=== PATIENT | male | born 1955 | race Caucasian/White ===

== ENCOUNTER 2016-12-05 07:49 | Day surgery (SDC) | payer BC ==
[~2016-12-05 07:49] MED LIST: Lactated Ringers 1,000 ML IV SCH
[2016-12-05] MEDS ORDERED: fentaNYL 100 MCG/2 ML SDV ONE (08:58)
[2016-12-05] MEDS ORDERED: Propofol 200 MG/20 ML SDV ONE ×3 (08:58→10:02)
[2016-12-05 16:04] VITALS: BP 131/77
--- NOTE | 2016-12-05 16:17 | OR ---
DATE OF SURGERY: 12/05/2016. REFERRING PROVIDER: Baldomero Parker MD. PREOPERATIVE DIAGNOSES: Positive family history of colon cancer in father who was diagnosed at age 56. The patient has had 2 previous colonoscopies, which were normal per patient report. POSTOPERATIVE DIAGNOSES: Normal colonoscopy. PROCEDURE: Colonoscopy. SURGEON: Vinicio Aragon M.D. ANESTHESIA: Monitored anesthesia care. BOWEL PREP: Good. Eulalio is a 61-year-old male who was brought to the endoscopy suite after discussing risks and benefits of the procedure. Informed consent was obtained for conscious sedation and colonoscopy with or without biopsy and/or polypectomy. We also discussed possibility of missed lesions. Pre-procedure exam was unremarkable. IV, oxygen, and monitors were placed. The patient was placed in the left lateral decubitus position. Sedation was administered and a digital rectal exam was performed which was unremarkable. Colonoscope was passed into the rectum and slowly advanced all the way to the cecum. Cecum was viewed and photographed. The colonoscope was slowly withdrawn and the mucosa was closed observed in a direct circumferential manner. The ascending colon was unremarkable. The transverse colon was unremarkable. The descending colon was unremarkable. The sigmoid colon was unremarkable. Retroflexion was performed and rectal mucosa was unremarkable. Scope was removed. The patient tolerated the procedure well. The patient was monitored until that baseline status. Discharge instructions were reviewed and the patient was discharged in good condition. COMPLICATIONS: None. TOTAL TIME: 19 minutes. ESTIMATED BLOOD LOSS: None. RECOMMENDATIONS/FOLLOW-UP: Recommend repeat colonoscopy in about 5 years given the patient's positive family history of colon cancer. I would like to kindly thank Sky Parker for this referral. DMB: 12/05/2016 10:28:54 MODL: 12/05/2016 16:10:51 /[id number]
== END 2016-12-05 11:15 | disposition home or self-care (01) ==
LOC: VM.SDS 07:49
PROVIDERS: ATTEND Family Medicine
DX: Z12.11 Encounter for screening for malignant neoplasm of colon (principal); Z98.890 Other specified postprocedural states; Z79.899 Other long term (current) drug therapy
CPT/HCPCS: 45378; J2704; J3010; J7120

== ENCOUNTER 2022-09-26 12:15 | Day surgery (SDC) | payer BC, MEDICARE ==
[2022-09-26] MEDS: Lactated Ringers 1,000 ML IV SCH (12:33)
[2022-09-26] MEDS ORDERED: Propofol 200 MG/20 ML SDV ONE ×2 (14:15→14:33)
[2022-09-26] MEDS ORDERED: fentaNYL 100 MCG/2 ML SDV ONE (14:15)
[2022-09-26 15:08] VITALS: BP 109/63; PULSE 66
== END 2022-09-26 15:48 | disposition home or self-care (01) ==
LOC: VM.SDS 12:15
PROVIDERS: ATTEND Family Medicine
DX: Z12.11 Encounter for screening for malignant neoplasm of colon (principal); D12.0 Benign neoplasm of cecum; E78.2 Mixed hyperlipidemia; R73.01 Impaired fasting glucose; N40.1 Benign prostatic hyperplasia with lower urinary tract symptoms; R39.9 Unspecified symptoms and signs involving the genitourinary system; Z80.0 Family history of malignant neoplasm of digestive organs; Z98.890 Other specified postprocedural states; Z79.899 Other long term (current) drug therapy
CPT/HCPCS: 00812; 88305; J2704; J3010; J7120